=== PATIENT | male | born 1945 | race Caucasian/White ===

== ENCOUNTER → 2017-11-12 09:40 | Outpatient (CLI) | payer OTHER, SELFPAY | PROVIDERS: PCP Internal Medicine; Visit Provider Urology | DX: C61 Malignant neoplasm of prostate (principal) | CPT/HCPCS: 36415; 84153 ==

== ENCOUNTER → 2018-08-09 12:35 | Outpatient (CLI) | payer OTHER, SELFPAY | PROVIDERS: PCP Nurse Practitioner Family; Visit Provider Nurse Practitioner Family | DX: M85.88 Other specified disorders of bone density and structure, other site (principal); E07.9 Disorder of thyroid, unspecified; Z85.46 Personal history of malignant neoplasm of prostate; Z87.891 Personal history of nicotine dependence | CPT/HCPCS: 77080 ==

== ENCOUNTER → 2018-08-19 09:24 | Outpatient (CLI) | payer OTHER, SELFPAY ==
[2018-08-19 11:02] LABS: Prostate Specific Antigen 9.79 ng/mL (0.10-4.00)
== END ==
PROVIDERS: PCP Nurse Practitioner Family; Visit Provider Urology
DX: C61 Malignant neoplasm of prostate (principal); R97.20 Elevated prostate specific antigen [PSA]
CPT/HCPCS: 36415; 84153

== ENCOUNTER → 2018-09-24 11:09 | Outpatient (CLI) | payer OTHER, SELFPAY ==
--- NOTE | 2018-09-24 | DI.NM.S_ITS ---
PROCEDURE: NM BONE SCAN WHOLE BODY RADIOPHARMACEUTICAL: 16.8 mCi Tc-99m MDP IV. INDICATIONS: PROSTATE CANCER TECHNIQUE: Delayed whole-body scintigrams were obtained approximately 3-4 hours after intravenous injection of radiotracer. Anterior and posterior views were acquired from vertex to feet. COMPARISON: [facility], CT, CT ABDOMEN PELVIS W CON, 09/24/2018, 12:33. FINDINGS: No lesions are identified in skull, sternum, clavicles, scapulae, ribs, bony pelvis, and visualized shafts of the long bones. There is low level increased uptake in cervical, thoracic and lumbar spine with distribution indistinguishable from degenerative disc and facet disease; early metastasis to spine could be obscured by degenerative changes. There are foci of increased periarticular activity involving shoulders, sternoclavicular joints, elbows, left wris, hands, knees, ankles and feet, compatible with degenerative/arthritic changes. IMPRESSION: No definitive scintigraphic findings to suggest osseous metastasis. Dictated by: Carlene Hlom M.D. on 09/24/2018 at 17:03 Approved by: Carlene Holm M.D. on 09/24/2018 at 17:25
[2018-09-24 12:12] LABS: Estimated Glomerular Filt Rate > 60.0 mL/min (>60)
--- NOTE | 2018-09-24 12:17 | DI.CT.S_ITS ---
PROCEDURE: CT ABDOMEN PELVIS W CON INDICATIONS: PROSTATE CANCER TECHNIQUE: After the administration of oral and intravenous contrast, 5 mm thick sections acquired from the diaphragms to the symphysis. 5 mm thick coronal and sagittal reformats were performed. For radiation dose reduction, the following was used: automated exposure control, adjustment of mA and/or kV according to patient size. COMPARISON: [facility], , L-SPINE 2-3 VIEWS, 11/02/2008, 10:29. FINDINGS: Image quality: Excellent. ABDOMEN: Lung bases: Probable 5 mm nodule in the right middle lobe (series 3 image 1). Lung bases are otherwise clear. Heart size is normal. There is a small hiatal hernia. Solid organs: Mild diffuse hepatic fatty infiltration. Liver is normal in size and enhancement. Gallbladder is normal. Biliary system is non-dilated. Pancreas enhances normally. Spleen is normal in size and enhancement. No adrenal nodules. Kidneys are normal in size and enhancement, without hydronephrosis. Multiple simple appearing right renal cysts are present. Peritoneum and bowel: Stomach, small bowel, and colon loops are normal in caliber and wall thickness. There are scattered colonic diverticula. No free fluid or air. Nodes and vessels: No retroperitoneal or mesenteric adenopathy. Aorta and inferior vena cava are normal in caliber. Miscellaneous: No ventral hernias. PELVIS: Genitourinary: Bladder wall thickness is normal. Prostate is enlarged and demonstrates heterogeneous enhancement. Miscellaneous: No inguinal hernias or adenopathy. Bones: No suspicious bony lesions. No vertebral body compression fractures. 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 IMPRESSION: 1. Enlarged prostate demonstrates heterogeneous enhancement. 2. No evidence for metastatic disease. 3. Diverticulosis without acute diverticulitis. 4. Hepatic steatosis. 5. Probably 5 mm nodule in the right middle lobe. Recommend followup chest CT in 6-12 months. Fleischner Society criteria for SOLID lung nodule followup. Nodule size (mm)Low-risk patientHigh-risk patient?4No follow-up neededFollow-up at 12 mo; if no change, no further follow-up>2-4Hwdtih-ef CT at 12 mo; if no change, no further follow-up needed.Initial follow-up CT at 6-12 mo, then 18-24 mo if no change. >6-8Initial follow-up CT at 6-12 mo, then 18-24 mo if no change. Initial follow-up CT at 3-6 mo, then 9-12 mo and 24 mo if no change. >8Follow-up CT at 3, 9, 24 mo. Or PET and/or biopsy.Same as for low-risk pts. Dictated by: Carlene Holm M.D. on 09/24/2018 at 15:55 Approved by: Carlene Holm M.D. on 09/24/2018 at 17:33
== END ==
PROVIDERS: PCP Nurse Practitioner Family; Visit Provider Urology
DX: C61 Malignant neoplasm of prostate (principal); K57.90 Diverticulosis of intestine, part unspecified, without perforation or abscess without bleeding; K76.0 Fatty (change of) liver, not elsewhere classified
CPT/HCPCS: 36415; 74177; 78306; 82565; A9503

== ENCOUNTER → 2019-01-10 08:44 | Outpatient (CLI) | payer OTHER, SELFPAY ==
[2019-01-10 11:06] LABS: Prostate Specific Antigen 0.627 ng/mL (0.10-4.00)
== END ==
PROVIDERS: PCP Nurse Practitioner Family; Visit Provider Student in an Organized Health Care Education/Training Program
DX: C61 Malignant neoplasm of prostate (principal)
CPT/HCPCS: 36415; 84153

== ENCOUNTER → 2019-01-17 12:51 | Outpatient (CLI) | payer OTHER, SELFPAY ==
[2019-01-17 14:52] LABS: Prostate Specific Antigen 0.623 ng/mL (0.10-4.00)
== END ==
PROVIDERS: PCP Nurse Practitioner Family; Visit Provider Student in an Organized Health Care Education/Training Program
DX: C61 Malignant neoplasm of prostate (principal)
CPT/HCPCS: 36415; 84153

== ENCOUNTER → 2019-06-21 09:43 | Outpatient (CLI) | payer OTHER, SELFPAY ==
[2019-06-21 11:21] LABS: Prostate Specific Antigen Scrn < 0.064 ng/mL (0.1-4.0)
== END ==
PROVIDERS: PCP Internal Medicine; Referring Provider Radiology Therapeutic Radiology; Visit Provider Radiology Therapeutic Radiology
DX: C61 Malignant neoplasm of prostate (principal)
CPT/HCPCS: 36415; G0103

== ENCOUNTER → 2019-08-13 07:01 | Outpatient (CLI) | payer MEDICARE, SELFPAY ==
[2019-08-13 08:06] LABS: Add Manual Diff / Slide Review NO; Basophils Absolute Auto 0 /uL (0-100); Basophils Percent Auto 0.8 % (0-2); Eosinophils Absolute Auto 200 /uL (0-450); Eosinophils Percent Auto 5.1 % (2-4); Hemoglobin 14.7 g/dL (13.5-17.5); Lymphocytes Absolute Auto 1000 /uL (1100-4500); Lymphocytes Percent Auto 20.5 % (25-40); Mean Corpuscular HGB Conc 36.6 % (30-36); Mean Corpuscular Hemoglobin 33.5 PG (26-34); Mean Corpuscular Volume 91.4 fL (80-100); Monocytes Absolute Auto 500 /uL (0-900); Monocytes Percent Auto 9.3 % (3-14); Neutrophils Absolute Auto 3100 /uL (1500-7000); Neutrophils Percent Auto 64.3 % (50-75); Platelet Count 119 X10^3/uL (150-400); Red Blood Cell Count 4.37 X10^6/uL (4.5-5.9); Red Cell Distribution Width 13.1 % (11.6-14.8); White Blood Cell Count 4.9 X10^3/uL (4.5-11.0)
[2019-08-13 08:20] LABS: Alanine Aminotransferase 35 IU/L (<50); Albumin 4.2 g/dL (3.5-5.0); Albumin Globulin Ratio 1.5 (1.0-2.8); Alkaline Phosphatase 42 U/L (38-126); Aspartate Aminotransferase 34 IU/L (17-59); BUN Creatinine Ratio 16.7 (6-22); Bilirubin Total 0.7 mg/dL (0.2-1.3); Blood Urea Nitrogen 16 mg/dL (9-20); Carbon Dioxide 29 mmol/L (22-32); Chloride 103 mmol/L (98-107); Cholesterol 157 mg/dL (140-199); Estimated Glomerular Filt Rate > 60.0 mL/min (>60); Globulin 2.8 g/dL (1.7-4.1); Glucose 98 mg/dL (80-110); HDL Cholesterol 41 mg/dL (40-60); HEMOLYSIS < 15 (0-50); LDL Cholesterol Calculated 95 mg/dL (<100); Potassium 3.7 mmol/L (3.4-5.1); Sodium 140 mmol/L (137-145); Triglycerides 104 mg/dL (35-150)
[2019-08-13 08:47] LABS: TSH w/ Reflex to FT4 7.85 uIU/mL (0.47-4.68)
[2019-08-13 09:17] LABS: Free T4, Direct Thyroxine 1.01 ng/dL (0.78-2.19)
== END ==
PROVIDERS: PCP Internal Medicine; Referring Provider Internal Medicine; Visit Provider Internal Medicine
DX: Z00.00 Encounter for general adult medical examination without abnormal findings (principal); I10 Essential (primary) hypertension; E03.9 Hypothyroidism, unspecified
CPT/HCPCS: 36415; 80053; 80061; 84439; 84443; 85025

== ENCOUNTER → 2019-09-22 12:02 | Outpatient (CLI) | payer OTHER, SELFPAY ==
[2019-09-23 06:36] LABS: PSA Ultrasensitive <0.014 ng/mL (0.000-4.000)
== END ==
PROVIDERS: PCP Internal Medicine; Referring Provider Radiology Therapeutic Radiology; Visit Provider Radiology Therapeutic Radiology
DX: C61 Malignant neoplasm of prostate (principal)
CPT/HCPCS: 36415; 84153

== ENCOUNTER → 2019-11-12 13:35 | Outpatient (CLI) | payer MEDICARE, SELFPAY ==
--- NOTE | 2019-11-12 | DI.CT.S_ITS ---
PROCEDURE: CT CHEST WO CON INDICATIONS: Abnormal findings on diagnostic imaging TECHNIQUE: Noncontrast 5 mm thick sections acquired from the pulmonary apices to the posterior costophrenic angles. 1 mm lung window, 5 mm thick coronal and sagittal and 7 mm axial MIP reformats were then acquired. For radiation dose reduction, the following was used: automated exposure control, adjustment of mA and/or kV according to patient size. COMPARISON: [facility], CT, CT ABDOMEN PELVIS W CON, 09/24/2018, 12:33. FINDINGS: Image quality: Excellent. Lungs and pleura: No acute air space opacities. No pleural effusions or pneumothorax. Central and peripheral airways are patent and normal in caliber. 4 mm right upper lobe nodule on series 3, image 122 is present. 4 mm right middle lobe nodule is present on series 3, image 188, corresponding to abnormality identified on CT abdomen of 09/24/2018. It appears unchanged.. Mediastinum: Heart size is normal. No pericardial effusion. No mediastinal adenopathy by size criteria. Thoracic aorta and central pulmonary arteries are normal in size. Esophagus is normal in caliber. No hiatal hernia. Bones and chest wall: No suspicious bony lesions. No vertebral body compression fractures. No axillary or supraclavicular adenopathy by size criteria. Thyroid gland is unremarkable . Abdomen: Visualized upper abdominal solid organs and bowel loops appear normal in the absence of contrast. IMPRESSION: 1. Stable 4 mm right middle lobe nodule seen on series 23, image 19. 2. 4 mm right upper lobe nodule without prior exams available for comparison. Recommend interval follow-up as below. Fleischner Society criteria for SOLID lung nodule followup. Nodule size (mm)Low-risk patientHigh-risk patient<6 (single or multiple)No routine followup.Optional CT at 12 months. 6-8 (single or multiple)CT at 6-12 months, then optional CT at 18-24 mo.CT at 6-12 months, then CT at 18-24 months. >8 (single)CT, PET-CT, or biopsy at 3 months. Same as for low-risk pts. >8 (multiple)CT at 3-6 months, then optional CT at 18-24 mo.CT at 3-6 months, then CT at 18-24 months. Recommendations do not apply to lung cancer screening, patients with immunosuppression, or patients with known primary cancer. Dictated by: Lindsay Vasquez M.D. on 11/12/2019 at 17:05 Approved by: Lindsay Vasquez M.D. on 11/12/2019 at 17:09
== END ==
PROVIDERS: PCP Internal Medicine; Referring Provider Family Medicine; Visit Provider Family Medicine
DX: R93.89 Abnormal findings on diagnostic imaging of other specified body structures (principal); R91.8 Other nonspecific abnormal finding of lung field
CPT/HCPCS: 71250

== ENCOUNTER 2019-11-26 12:00 | Outpatient (RCR) | payer OTHER, SELFPAY ==
--- NOTE | 2019-11-05 14:43 | PT.OIE ---
Current Diagnoses Benign prostatic hyperplasia without lower urinary tract symptoms (11/04/19) Visit Care Team Role Provider Type Dario Camejo MD Primary Care Provider Physician Specialty: Internal Medicine Address: [address] [place] [address], [address] Email: [email or web address] hospitalComm[facility] Christin Nole Attending Provider Non-Staff Referring Provider Specialty: Medical Address: [address] [place] [address], [address] Phone: Email: Physical Therapy Initial Evaluation PT-OP-A Visit Information Start: 11/04/19 08:58 Freq: Status: Active Protocol: Document 11/04/19 09:00 [facility] (Rec: 11/04/19 09:23 [facility] [id number]) Out-Patient Physical Therapy Visit Information Visit Information Visit Type Initial Evaluation Visit Start Time 09:00 Visit Stop Time 09:45 Total Visit Minutes 45 Visit Number 1 Evaluation Information Evaluation Date 11/04/19 PT-OP-B Current Condition Start: 11/04/19 08:58 Freq: Status: Active Protocol: Document 11/04/19 09:00 [facility] (Rec: 11/04/19 09:23 [facility] [id number]) Current Condition History of Current Condition Onset Date December 03 2018 Current Complaints Urinary incontinence History of Current Condition Had gained 95% of his control back after prostate surgery but then started 8 weeks of radiation he finished the end of August 2019. This set him back 6 months as far as his bladder symptoms. He has also developed a chronic cough which is causing 90% of his leakage. He notes every time he coughs he leaks. The cough started approx 3-4 weeks ago. Nitesh describes very little leakage at night when he is laying down. Leaking occurs mostly with standing. He is currently wearing depends and will go through 2-3 per day. He is doing some excavating on his property at this time. This includes lifting heavy rocks and such. He feels like he could have done this work before the radiation without problems. He also likes to sail that includes bending and twisting. Nitesh reports decreased sensation that his bladder is full. He is voiding frequently to avoid his bladder becomming too full . He is emptying his bladder once every hour. He gets up 1 xm per night to void. Hx of skin cancers removed. He reports he can feel a pelvic floor in sitting buthe has difficulty feeling his pelvic floor in supine and in standing. Treatment Goals Patient/Caregiver Goals Pt's goals include decreasing leakage to be able to continue with his normal activities without leakage. Prior Functional Status Baseline Function- ADL's Independent Baseline Function- Mobility Independent Baseline Function- Other prior to surgery and radiation Gene did not have any problems with urinary leakage PT-OP-I Pelvic Floor Start: 11/04/19 08:58 Freq: Status: Active Protocol: Document 11/04/19 09:00 [facility] (Rec: 11/05/19 14:30 [facility] [id number]) Pelvic Floor Assessment Urine Pelvic Floor Surgery Yes Other Urinary Symptoms frequency of voiding, pt often does not feel the urge to void as he is voiding frequently Leakage Size Large Leakage Cause Cough,Exercise,Lifting,Sneeze Leaks Per Day constant Voiding Frequency every hour Nocturia yes Pads Used In 24 Hours 5 Urine Pad Type Depends Contraction Ability Voluntary Contraction Moderate Voluntary Relaxation Moderate Comments Pelvic Floor Comments decreased endurance of the pelvic floor muscles, difficulty sustaining a contraction greater than 5 seconds PT-OP-J Posture/Palpation/Skin Start: 11/04/19 08:58 Freq: Status: Active Protocol: Document 11/04/19 09:00 [facility] (Rec: 11/05/19 14:30 [facility] [id number]) Palpation Assessment Location iliopsoas Palpation Location Myofascial restrictions and decreased mobility of the iliopsoas Palpation Findings Soft Tissue Tightness,Muscle Guarding suprapubic fascia Palpation Location suprapubic fascia Palpation Findings Soft Tissue Tightness Palpation Details Myofascial restrictions in the suprapubic fascia adductors Palpation Location tightness and myofascial restrictions in the adductors bilaterally Palpation Findings Soft Tissue Tightness,Muscle Guarding PT-OP-M Strength Start: 11/04/19 08:58 Freq: Status: Active Protocol: Document 11/04/19 09:00 [facility] (Rec: 11/05/19 14:30 [facility] [id number]) Hip Strength Hip Manual Muscle Testing Right External Rotation 4 Good Left External Rotation 4 Good PT-OP-Q Treatments Start: 11/04/19 08:58 Freq: Status: Active Protocol: Document 11/04/19 09:00 [facility] (Rec: 11/05/19 14:30 [facility] [id number]) Therapeutic Exercises Supine Exercises pelvic floor long holds Supine Exercise Name pelvic floor long holds Reps/Minutes 10 second holds x 10 reps Sidelying Exercises clams shells Sidelying Exercise Name clam shells Side bilateral Reps/Minutes 3 x 10 reps PT-OP-T Assessment and Plan Start: 11/04/19 08:58 Freq: Status: Active Protocol: Document 11/04/19 09:00 [facility] (Rec: 11/05/19 14:30 [facility] [id number]) Physical Therapy Assessment Goals myofascial restrictions in the suprapubic fascia, adductors, iliopsoas Impairment myofascial restrictions in the suprapubic fascia, adductors, iliopsoas Group Home Goal (LTG) With a home stretching program and manual therapy techniques there is improved mobility of the myofascial tissue and improved hip mobility. LTG Duration 8 weeks Two Impairment Urinary leakage in upright positions Group Home Goal (LTG) Nitesh has overall decreased reports of urinary leakage with activities in standing and has decreased his pad use from 5 to 0-1 pad per day. LTG Duration 8 weeks One Impairment decreased endurance of the pelvic floor muscles Short Term Goal (STG) Nitesh is able to sustain a pelvic floor contraction in supine x 10 seconds STG Duration 4 weeks Quill Picking Machine Operator Goal (LTG) Nitesh is able to sustain a pelvic floor contraction in standing x 10 seconds LTG Duration 8 weeks Assessment Summary Assessment Nitesh is a 74 year old male who presents to PT with urinary incontinence following prostatectomy and radiation therapy. Nitesh reports his prostate suregery was in December of 2018. He states he gained about 95% of his bladder control back following surgery. He started radiated in June of 2019 and by the end of radiation his bladder symptoms began returning. He also developed a chronic cough about a month ago and this is putting increased pressure down on his bladder. He is currently wearing depends and notes he leaks primarily in upright positions and with activity. He stays dry at night and with sitting. He is wearning depends and needs to change his pads approx 4-5 times per day. He is also noting some tightness in his hips since radiation but denies any c/o pain. With examination today Nitesh has decreased endurance of his pelvic floor muscles. He is able to properly contract both the pelvic floor and transverse abdominal muscles however lacks full endurance. There is myofascial restrictions noted in the suprapubic fascia and adductors. Iliopsoas on bilateral sides is tight. Treatment will include endurance training of the pelvic floor as well as MFR to improve hip mobility and counteract the effects of the radiation on the tissue surrounding the pelvis. Physical Therapy Plan Frequency and Duration Frequency of Treatment 1x/Week Duration of Treatment 8 Plan of Care Start Date 11/04/19 Plan of Care End Date 12/30/19 Therapeutic Interventions Therapeutic Interventions Home Exercise Program, Neuromuscular Re-education, Patient/Caregiver Education, Self-Care/Home Management,Soft Tissue Mobilization, Therapeutic Exercises Next Visit Focus/Plan Next Note Type Treatment Note Next Visit Plan pelvic floor strengthening, hip hat and cap opener exercises, MFR for the suprapubic region and adductors
--- NOTE | 2019-11-05 14:43 | PT.OPPOC ---
Physical, Occupational & Speech Therapy At [facility] Current Diagnoses Benign prostatic hyperplasia without lower urinary tract symptoms (11/04/19) Visit Care Team Role Provider Type Dario Camejo MD Primary Care Provider Physician Specialty: Internal Medicine Address: [address] [place] [address], [address] Email: [email or web address] Christin Noel Attending Provider Non-Staff Referring Provider Specialty: Medical Address: [address] [place] [address], [address] Phone: Email: Plan Of Care PT-OP-T Assessment and Plan Start: 11/04/19 08:58 Freq: Status: Active Protocol: Document 11/04/19 09:00 [facility] (Rec: 11/05/19 14:30 [facility] [id number]) Physical Therapy Assessment Goals myofascial restrictions in the suprapubic fascia, adductors, iliopsoas Impairment myofascial restrictions in the suprapubic fascia, adductors, iliopsoas Tile Machine Operator Goal (LTG) With a home stretching program and manual therapy techniques there is improved mobility of the myofascial tissue and improved hip mobility. LTG Duration 8 weeks Two Impairment Urinary leakage in upright positions [facility] Goal (LTG) Nitesh has overall decreased reports of urinary leakage with activities in standing and has decreased his pad use from 5 to 0-1 pad per day. LTG Duration 8 weeks One Impairment decreased endurance of the pelvic floor muscles Short Term Goal (STG) Nitesh is able to sustain a pelvic floor contraction in supine x 10 seconds STG Duration 4 weeks Tile Machine Operator Goal (LTG) Nitesh is able to sustain a pelvic floor contraction in standing x 10 seconds LTG Duration 8 weeks Assessment Summary Assessment Nietsh is a 74 year old male who presents to PT with urinary incontinence following prostatectomy and radiation therapy. Nitesh reports his prostate surgery was in December of 2018. He states he gained about 95% of his bladder control back following surgery. He started radiated in June of 2019 and by the end of radiation his bladder symptoms began returning. He also developed a chronic cough about a month ago and this is putting increased pressure down on his bladder. He is currently wearing depends and notes he leaks primarily in upright positions and with activity. He stays dry at night and with sitting. He is wearing depends and needs to change his pads approx 4-5 times per day. He is also noting some tightness in his hips since radiation but denies any c/o pain. With examination today Gene has decreased endurance of his pelvic floor muscles. He is able to properly contract both the pelvic floor and transverse abdominal muscles however lacks full endurance. There is myofascial restrictions noted in the suprapubic fascia and adductors. Iliopsoas on bilateral sides is tight. Treatment will include endurance training of the pelvic floor as well as MFR to improve hip mobility and counteract the effects of the radiation on the tissue surrounding the pelvis. Physical Therapy Plan Frequency and Duration Frequency of Treatment 1x/Week Duration of Treatment 8 Plan of Care Start Date 11/04/19 Plan of Care End Date 12/30/19 Therapeutic Interventions Therapeutic Interventions Home Exercise Program, Neuromuscular Re-education, Patient/Caregiver Education, Self-Care/Home Management,Soft Tissue Mobilization, Therapeutic Exercises Next Visit Focus/Plan Next Note Type Treatment Note Next Visit Plan pelvic floor strengthening, hip toll operator exercises, MFR for the suprapubic region and adductors Plan of Care Dates Plan of Care Start Date 11/04/19 Plan of Care End Date 12/30/19 Electronically Signed by: Chely Alvarez, PT 11/05/19 1175 Please Sign and Return: I have reviewed this Plan of Care and certify that the skilled therapy services above are required to meet the patient?s needs. Physician Signature Date Printed Name and Credentials Clinical Instructor Signature Printed Name and Credentials
--- NOTE | 2019-11-12 14:53 | PT.OTN ---
Current Diagnoses Benign prostatic hyperplasia without lower urinary tract symptoms (11/12/19) Physical Therapy Treatment Note PT-OP-A Visit Information Start: 11/04/19 08:58 Freq: Status: Active Protocol: Document 11/12/19 09:42 [facility] (Rec: 11/12/19 09:42 [facility] [email or web address]) Out-Patient Physical Therapy Visit Information Visit Information Visit Type Treatment Note Visit Start Time 09:45 Visit Stop Time 10:30 Total Visit Minutes 45 Visit Number 2 Evaluation Information Evaluation Date 11/04/19 PT-OP-B Current Condition Start: 11/04/19 08:58 Freq: Status: Active Protocol: Document 11/04/19 09:00 [facility] (Rec: 11/04/19 09:23 [facility] [id number]) Current Condition History of Current Condition Onset Date December 03 2018 Current Complaints Urinary incontinence History of Current Condition Had gained 95% of his control back after prostate surgery but then started 8 weeks of radiation he finished the end of August 2019. This set him back 6 months as far as his bladder symptoms. He has also developed a chronic cough which is causing 90% of his leakage. He notes every time he coughs he leaks. The cough started approx 3-4 weeks ago. Nitesh describes very little leakage at night when he is laying down. Leaking occurs mostly with standing. He is currently wearing depends and will go through 2-3 per day. He is doing some excavating on his property at this time. This includes lifting heavy rocks and such. He feels like he could have done this work before the radiation without problems. He also likes to sail that includes bending and twisting. Nitesh reports decreased sensation that his bladder is full. He is voiding frequently to avoid his bladder becomming too full . He is emptying his bladder once every hour. He gets up 1 xm per night to void. Hx of skin cancers removed. He reports he can feel a pelvic floor in sitting buthe has difficulty feeling his pelvic floor in supine and in standing. Treatment Goals Patient/Caregiver Goals Pt's goals include decreasing leakage to be able to continue with his normal activities without leakage. Prior Functional Status Baseline Function- ADL's Independent Baseline Function- Mobility Independent Baseline Function- Other prior to surgery and radiation Nitesh did not have any problems with urinary leakage PT-OP-C Subjective Start: 11/04/19 08:58 Freq: Status: Active Protocol: Document 11/12/19 09:45 [facility] (Rec: 11/12/19 09:52 [facility] [id number]) OP-PT Subjective Patient Comments Patient Comments Pt returns to PT today, he still has the chronic cough. He notes the kegels were no problem. The clam shells he wasn't as good at that as he could have been. HE has been feeling really weak in his right leg. PT-OP-I Pelvic Floor Start: 11/04/19 08:58 Freq: Status: Active Protocol: Document 11/04/19 09:00 [facility] (Rec: 11/05/19 14:30 [facility] [id number]) Pelvic Floor Assessment Urine Pelvic Floor Surgery Yes Other Urinary Symptoms frequency of voiding, pt often does not feel the urge to void as he is voiding frequently Leakage Size Large Leakage Cause Cough,Exercise,Lifting,Sneeze Leaks Per Day constant Voiding Frequency every hour Nocturia yes Pads Used In 24 Hours 5 Urine Pad Type Depends Contraction Ability Voluntary Contraction Moderate Voluntary Relaxation Moderate Comments Pelvic Floor Comments decreased endurance of the pelvic floor muscles, difficulty sustaining a contraction greater than 5 seconds PT-OP-J Posture/Palpation/Skin Start: 11/04/19 08:58 Freq: Status: Active Protocol: Document 11/04/19 09:00 [facility] (Rec: 11/05/19 14:30 [facility] [id number]) Palpation Assessment Location iliopsoas Palpation Location Myofascial restrictions and decreased mobility of the iliopsoas Palpation Findings Soft Tissue Tightness,Muscle Guarding suprapubic fascia Palpation Location suprapubic fascia Palpation Findings Soft Tissue Tightness Palpation Details Myofascial restrictions in the suprapubic fascia adductors Palpation Location tightness and myofascial restrictions in the adductors bilaterally Palpation Findings Soft Tissue Tightness,Muscle Guarding PT-OP-M Strength Start: 11/04/19 08:58 Freq: Status: Active Protocol: Document 11/04/19 09:00 [facility] (Rec: 11/05/19 14:30 [facility] [id number]) Hip Strength Hip Manual Muscle Testing Right External Rotation 4 Good Left External Rotation 4 Good PT-OP-Q Treatments Start: 11/04/19 08:58 Freq: Status: Active Protocol: Document 11/12/19 09:45 [facility] (Rec: 11/12/19 09:52 [facility] [id number]) Therapeutic Exercises Supine Exercises prone sphinx stretch Reps/Minutes hold 1-2 minutes figure 4 stretch Reps/Minutes hold x 1 minute each. iliopsoas hip stretch Reps/Minutes 2 x 30 seconds each. single knee to chest Reps/Minutes 2 x 30 seconds each pelvic floor long holds Supine Exercise Name pelvic floor long holds Reps/Minutes 10 second holds x 10 reps Sidelying Exercises clams shells Sidelying Exercise Name clam shells Side bilateral Reps/Minutes 3 x 10 reps Neuro Re-Education Treatment Other Activities EMG BIOFEEDBACK Details EMG biofeedback for pelvic floor recruitment Comments I worked on both long holds and quick flicks PT-OP-T Assessment and Plan Start: 11/04/19 08:58 Freq: Status: Active Protocol: Document 11/12/19 14:52 [facility] (Rec: 11/12/19 14:53 [facility] [email or web address]) Physical Therapy Assessment Assessment Summary Assessment Gene did well today tolerating the stretches, he is much tighter on his right side and iliopsoas causes some cramping with SKTC on the right. Good tolerance for long holds andhis average was a 26 and max of 49 for long holds on EMG biofeedback today Physical Therapy Plan Frequency and Duration Frequency of Treatment 1x/Week Duration of Treatment 8 Plan of Care Start Date 11/04/19 Plan of Care End Date 12/30/19 Next Visit Focus/Plan Next Note Type Treatment Note Next Visit Plan pelvic floor strengthening, hip staff air tactical officer exercises, MFR for the suprapubic region and adductors, EMG biofeedback for neuroawareness of the pelvic floor
--- NOTE | 2019-11-26 14:58 | PT.OTN ---
Current Diagnoses Benign prostatic hyperplasia without lower urinary tract symptoms (11/26/19) Physical Therapy Treatment Note PT-OP-A Visit Information Start: 11/04/19 08:58 Freq: Status: Active Protocol: Document 11/26/19 14:43 [facility] (Rec: 11/26/19 14:58 [facility] [id number]) Out-Patient Physical Therapy Visit Information Visit Information Visit Type Treatment Note Visit Start Time 12:00 Visit Stop Time 12:45 Total Visit Minutes 45 Visit Number 3 Evaluation Information Evaluation Date 11/04/19 PT-OP-B Current Condition Start: 11/04/19 08:58 Freq: Status: Active Protocol: Document 11/04/19 09:00 [facility] (Rec: 11/04/19 09:23 [facility] [id number]) Current Condition History of Current Condition Onset Date December 03 2018 Current Complaints Urinary incontinence History of Current Condition Had gained 95% of his control back after prostate surgery but then started 8 weeks of radiation he finished the end of August 2019. This set him back 6 months as far as his bladder symptoms. He has also developed a chronic cough which is causing 90% of his leakage. He notes every time he coughs he leaks. The cough started approx 3-4 weeks ago. Nitesh describes very little leakage at night when he is laying down. Leaking occurs mostly with standing. He is currently wearing depends and will go through 2-3 per day. He is doing some excavating on his property at this time. This includes lifting heavy rocks and such. He feels like he could have done this work before the radiation without problems. He also likes to sail that includes bending and twisting. Nitesh reports decreased sensation that his bladder is full. He is voiding frequently to avoid his bladder becomming too full . He is emptying his bladder once every hour. He gets up 1 xm per night to void. Hx of skin cancers removed. He reports he can feel a pelvic floor in sitting buthe has difficulty feeling his pelvic floor in supine and in standing. Treatment Goals Patient/Caregiver Goals Pt's goals include decreasing leakage to be able to continue with his normal activities without leakage. Prior Functional Status Baseline Function- ADL's Independent Baseline Function- Mobility Independent Baseline Function- Other prior to surgery and radiation Nitesh did not have any problems with urinary leakage PT-OP-C Subjective Start: 11/04/19 08:58 Freq: Status: Active Protocol: Document 11/26/19 14:43 [facility] (Rec: 11/26/19 14:58 [facility] [id number]) OP-PT Subjective Patient Comments Patient Comments Gene reports he is doing better. He is down to one pad per day and doesn't have much leaking at night now. He is feeling ready to work on his exercises on his own after this visit PT-OP-I Pelvic Floor Start: 11/04/19 08:58 Freq: Status: Active Protocol: Document 11/04/19 09:00 [facility] (Rec: 11/05/19 14:30 [facility] [id number]) Pelvic Floor Assessment Urine Pelvic Floor Surgery Yes Other Urinary Symptoms frequency of voiding, pt often does not feel the urge to void as he is voiding frequently Leakage Size Large Leakage Cause Cough,Exercise,Lifting,Sneeze Leaks Per Day constant Voiding Frequency every hour Nocturia yes Pads Used In 24 Hours 5 Urine Pad Type Depends Contraction Ability Voluntary Contraction Moderate Voluntary Relaxation Moderate Comments Pelvic Floor Comments decreased endurance of the pelvic floor muscles, difficulty sustaining a contraction greater than 5 seconds PT-OP-J Posture/Palpation/Skin Start: 11/04/19 08:58 Freq: Status: Active Protocol: Document 11/04/19 09:00 [facility] (Rec: 11/05/19 14:30 [facility] [id number]) Palpation Assessment Location iliopsoas Palpation Location Myofascial restrictions and decreased mobility of the iliopsoas Palpation Findings Soft Tissue Tightness,Muscle Guarding suprapubic fascia Palpation Location suprapubic fascia Palpation Findings Soft Tissue Tightness Palpation Details Myofascial restrictions in the suprapubic fascia adductors Palpation Location tightness and myofascial restrictions in the adductors bilaterally Palpation Findings Soft Tissue Tightness,Muscle Guarding PT-OP-M Strength Start: 11/04/19 08:58 Freq: Status: Active Protocol: Document 11/04/19 09:00 [facility] (Rec: 11/05/19 14:30 [facility] [id number]) Hip Strength Hip Manual Muscle Testing Right External Rotation 4 Good Left External Rotation 4 Good PT-OP-Q Treatments Start: 11/04/19 08:58 Freq: Status: Active Protocol: Document 11/26/19 14:43 [facility] (Rec: 11/26/19 14:58 [facility] [id number]) Therapeutic Exercises Supine Exercises prone sphinx stretch Reps/Minutes hold 1-2 minutes figure 4 stretch Reps/Minutes hold x 1 minute each. iliopsoas hip stretch Reps/Minutes 2 x 30 seconds each. single knee to chest Reps/Minutes 2 x 30 seconds each pelvic floor long holds Supine Exercise Name pelvic floor long holds Reps/Minutes 10 second holds x 10 reps Sidelying Exercises clams shells Sidelying Exercise Name clam shells Side bilateral Reps/Minutes 3 x 10 reps Neuro Re-Education Treatment Other Activities EMG BIOFEEDBACK Details EMG biofeedback for pelvic floor recruitment Comments I worked on both long holds and quick flicks PT-OP-T Assessment and Plan Start: 11/04/19 08:58 Freq: Status: Active Protocol: Document 11/26/19 14:43 [facility] (Rec: 11/26/19 14:58 [facility] [email or web address]) Physical Therapy Assessment Goals myofascial restrictions in the suprapubic fascia, adductors, iliopsoas Impairment myofascial restrictions in the suprapubic fascia, adductors, iliopsoas Senior Living Goal (LTG) With a home stretching program and manual therapy techniques there is improved mobility of the myofascial tissue and improved hip mobility. GOAL MET LTG Duration 8 weeks Two Impairment Urinary leakage in upright positions Senior Living Goal (LTG) Nitesh has overall decreased reports of urinary leakage with activities in standing and has decreased his pad use from 5 to 0-1 pad per day. Excellent progress and Gene is down to 1 pad per day LTG Duration 8 weeks One Impairment decreased endurance of the pelvic floor muscles Short Term Goal (STG) Nitesh is able to sustain a pelvic floor contraction in supine x 10 seconds GOAL MET STG Duration 4 weeks Manager Competitive Intelligence Goal (LTG) Nitesh is able to sustain a pelvic floor contraction in standing x 10 seconds Pt working on standing pelvic floor contractions at home. LTG Duration 8 weeks Assessment Summary Assessment Average strength on EMG biofeedback is an average of 38 uv now and max of 58.4 uv. Nitesh has shown a good improvement with both strengthening and endurance training of his pelvic floor. He has reduced the number of pads to 1 per day and is feeling good about his exercises at this time. He will be discharged from PT at this time to a independent [facility] . Physical Therapy Plan Discharge Physical Therapy Discharge Reasons Patient Request Discharge Comments PT ready to work on his exercises independently
--- NOTE | 2019-11-26 15:01 | PT.OPDS ---
Current Diagnoses Benign prostatic hyperplasia without lower urinary tract symptoms (11/26/19) Visit Care Team Role Provider Type Dario Camejo MD Primary Care Provider Physician Specialty: Internal Medicine Address: [address] [place] [address], [address] Email: [email or web address] Christin Noel Attending Provider Non-Staff Referring Provider Specialty: Medical Address: [address] [place] [address], [id number] Phone: Email: Visit Number Visit Number 3 Discharge Summary PT-OP-B Current Condition Start: 11/04/19 08:58 Freq: Status: Active Protocol: Document 11/04/19 09:00 [facility] (Rec: 11/04/19 09:23 [facility] [id number]) Current Condition History of Current Condition Onset Date December 03 2018 Current Complaints Urinary incontinence History of Current Condition Had gained 95% of his control back after prostate surgery but then started 8 weeks of radiation he finished the end of August 2019. This set him back 6 months as far as his bladder symptoms. He has also developed a chronic cough which is causing 90% of his leakage. He notes every time he coughs he leaks. The cough started approx 3-4 weeks ago. Nitesh describes very little leakage at night when he is laying down. Leaking occurs mostly with standing. He is currently wearing depends and will go through 2-3 per day. He is doing some excavating on his property at this time. This includes lifting heavy rocks and such. He feels like he could have done this work before the radiation without problems. He also likes to sail that includes bending and twisting. Nitesh reports decreased sensation that his bladder is full. He is voiding frequently to avoid his bladder becomming too full . He is emptying his bladder once every hour. He gets up 1 xm per night to void. Hx of skin cancers removed. He reports he can feel a pelvic floor in sitting buthe has difficulty feeling his pelvic floor in supine and in standing. Treatment Goals Patient/Caregiver Goals Pt's goals include decreasing leakage to be able to continue with his normal activities without leakage. Prior Functional Status Baseline Function- ADL's Independent Baseline Function- Mobility Independent Baseline Function- Other prior to surgery and radiation Nitesh did not have any problems with urinary leakage PT-OP-C Subjective Start: 11/04/19 08:58 Freq: Status: Active Protocol: Document 11/26/19 14:43 [facility] (Rec: 11/26/19 14:58 [facility] [id number]) OP-PT Subjective Patient Comments Patient Comments Nitesh reports he is doing better. He is down to one pad per day and doesn't have much leaking at night now. He is feeling ready to work on his exercises on his own after this visit PT-OP-I Pelvic Floor Start: 11/04/19 08:58 Freq: Status: Active Protocol: Document 11/26/19 14:59 [facility] (Rec: 11/26/19 15:01 [facility] [id number]) Pelvic Floor Assessment Urine Leakage Size Small Leaks Per Day decreased c/o leakage Voiding Frequency 1.5-2 hours Nocturia 1 Urine Pad Type Maxi Pad Contraction Ability Voluntary Contraction Moderate Voluntary Relaxation Moderate Comments Pelvic Floor Comments Nitesh is able to sustain a pelvic floor contraction for 10 seconds now with much improved average on EMG biofeedback. As of today his average was 38 with 58.4 uv max PT-OP-J Posture/Palpation/Skin Start: 11/04/19 08:58 Freq: Status: Active Protocol: Document 11/04/19 09:00 [facility] (Rec: 11/05/19 14:30 [facility] [id number]) Palpation Assessment Location iliopsoas Palpation Location Myofascial restrictions and decreased mobility of the iliopsoas Palpation Findings Soft Tissue Tightness,Muscle Guarding suprapubic fascia Palpation Location suprapubic fascia Palpation Findings Soft Tissue Tightness Palpation Details Myofascial restrictions in the suprapubic fascia adductors Palpation Location tightness and myofascial restrictions in the adductors bilaterally Palpation Findings Soft Tissue Tightness,Muscle Guarding PT-OP-M Strength Start: 11/04/19 08:58 Freq: Status: Active Protocol: Document 11/04/19 09:00 [facility] (Rec: 11/05/19 14:30 [facility] [id number]) Hip Strength Hip Manual Muscle Testing Right External Rotation 4 Good Left External Rotation 4 Good PT-OP-T Assessment and Plan Start: 11/04/19 08:58 Freq: Status: Active Protocol: Document 11/26/19 14:43 [facility] (Rec: 11/26/19 14:58 [facility] [id number]) Physical Therapy Assessment Goals myofascial restrictions in the suprapubic fascia, adductors, iliopsoas Impairment myofascial restrictions in the suprapubic fascia, adductors, iliopsoas Nursery Technician Goal (LTG) With a home stretching program and manual therapy techniques there is improved mobility of the myofascial tissue and improved hip mobility. GOAL MET LTG Duration 8 weeks Two Impairment Urinary leakage in upright positions Nursing Home Goal (LTG) Nitesh has overall decreased reports of urinary leakage with activities in standing and has decreased his pad use from 5 to 0-1 pad per day. Excellent progress and Gene is down to 1 pad per day LTG Duration 8 weeks One Impairment decreased endurance of the pelvic floor muscles Short Term Goal (STG) Nitesh is able to sustain a pelvic floor contraction in supine x 10 seconds GOAL MET STG Duration 4 weeks Nursery Technician Goal (LTG) Nitesh is able to sustain a pelvic floor contraction in standing x 10 seconds Pt working on standing pelvic floor contractions at home. LTG Duration 8 weeks Assessment Summary Assessment Average strength on EMG biofeedback is an average of 38 uv now and max of 58.4 uv. Nitesh has shown a good improvement with both strengthening and endurance training of his pelvic floor. He has reduced the number of pads to 1 per day and is feeling good about his exercises at this time. He will be discharged from PT at this time to a independent [facility] . Physical Therapy Plan Discharge Physical Therapy Discharge Reasons Patient Request Discharge Comments PT ready to work on his exercises independently
== END 2019-12-22 13:12 ==
LOC: PHYS 12:00
PROVIDERS: PCP Internal Medicine; Referring Provider Internal Medicine; Visit Provider Internal Medicine
DX: N40.0 Benign prostatic hyperplasia without lower urinary tract symptoms (principal)
CPT/HCPCS: 97110; 97112; 97161

== ENCOUNTER → 2019-12-01 13:13 | Outpatient (CLI) | payer MEDICARE, SELFPAY ==
[2019-12-03 08:23] LABS: COVID19 Sendout Not Detected (Not Detect)
== END ==
PROVIDERS: PCP Internal Medicine; Visit Provider Physician Assistant
DX: Z11.59 Encounter for screening for other viral diseases (principal)
CPT/HCPCS: 87635

== ENCOUNTER → 2019-12-04 10:51 | Outpatient (CLI) | payer MEDICARE, SELFPAY ==
--- NOTE | 2019-12-11 10:11 | PM.PFT.1 ---
Pulmonary Function Test Referral & Results Date Patient Seen: 12/04/19 Requesting provider: Dario Camejo Indication: Cough Results: The spirometry demonstrates an FVC of 3.24 L which is 85% of predicted. The FEV1 was measured at 2.36 L which is 86% of predicted. The FEV1/FVC ratio was 73 which is 100% of predicted. Following the administration of bronchodilator there was Na% improvement in FEV1 and a 33% improvement in FEF 25-75%. Lung volumes show an SVC of 4.39 L which is 107% of predicted. The diffusing capacity was measured at 20.5 for which is 72% of predicted. No hemoglobin value was provided, so no correction for potential anemia could be made, if appropriate. The maximum voluntary ventilation was normal Interpretation: This study demonstrates mild obstructive lung disease based on reduction FEV1. This is more prominent on flow volume loops based on shape of curve. There is some evidence of minimal benefit following bronchodilator with a minimal response in FEV1 but more prominent response in small airway flow demonstrated by the improvement in FEF 25-75% as above Lung volumes are normal There may also be a mild reduction in diffusing capacity, unless patient is anemic as above. Clinical correlation suggested
== END ==
PROVIDERS: PCP Internal Medicine; Referring Provider Internal Medicine; Visit Provider Internal Medicine
DX: R05 Cough (principal); J98.8 Other specified respiratory disorders; Z87.891 Personal history of nicotine dependence
CPT/HCPCS: 94060; 94726; 94729

== ENCOUNTER → 2020-03-17 08:33 | Outpatient (CLI) | payer OTHER, SELFPAY ==
[2020-03-17 10:44] LABS: Prostate Specific Antigen < 0.064 ng/mL (0.10-4.00)
== END ==
PROVIDERS: PCP Internal Medicine; Referring Provider Radiology Radiation Oncology; Visit Provider Radiology Radiation Oncology
DX: C61 Malignant neoplasm of prostate (principal)
CPT/HCPCS: 36415; 84153

== ENCOUNTER → 2020-03-25 11:11 | Outpatient (CLI) | payer MEDICARE, SELFPAY ==
--- NOTE | 2020-03-25 | DI.RAD.S_ITS ---
PROCEDURE: XR HIP W PEL IF DONE LT MIN 3V INDICATIONS: HIP PAIN TECHNIQUE: AP pelvis with lateral view(s) of the both hip(s). COMPARISON: [facility], L-SPINE 2-3 VIEWS, 11/02/2008, 10:29. [place], [place], DC BONE SCAN WHOLE BODY, 09/24/2018, 15:25. FINDINGS: Bones: No fractures or dislocations. Pelvic ring appears intact. No suspicious bony lesions. Mild symmetric hip and sacroiliac joint degeneration bilaterally. Soft tissues: The visualized bowel gas pattern is normal. No suspicious soft tissue calcifications. 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 Dictated by: Carlene Holm M.D. on 03/25/2020 at 17:21 Approved by: Carlene Holm M.D. on 03/25/2020 at 17:22
== END ==
PROVIDERS: PCP Internal Medicine; Referring Provider Internal Medicine; Visit Provider Internal Medicine
DX: M16.0 Bilateral primary osteoarthritis of hip (principal); M25.559 Pain in unspecified hip
CPT/HCPCS: 73522

== ENCOUNTER → 2020-08-11 08:45 | Outpatient (CLI) | payer MEDICARE, SELFPAY ==
[2020-08-11 09:15] LABS: Blood Urea Nitrogen 19 mg/dL (9-20); Calcium 9.8 mg/dL (8.4-10.2); Carbon Dioxide 29 mmol/L (22-32); Chloride 105 mmol/L (98-107); Estimated Glomerular Filt Rate > 60.0 mL/min (>60); Glucose 69 mg/dL (80-110); HEMOLYSIS < 15 (0-50); Potassium 4.1 mmol/L (3.4-5.1); Sodium 140 mmol/L (137-145)
[2020-08-11 09:45] LABS: TSH w/ Reflex to FT4 0.16 uIU/mL (0.47-4.68)
[2020-08-11 10:14] LABS: Free T4, Direct Thyroxine 1.61 ng/dL (0.78-2.19)
== END ==
PROVIDERS: PCP Internal Medicine; Referring Provider Internal Medicine; Visit Provider Internal Medicine
DX: I10 Essential (primary) hypertension (principal)
CPT/HCPCS: 36415; 80048; 84439; 84443

== ENCOUNTER → 2020-10-21 11:16 | Outpatient (CLI) | payer MEDICARE, SELFPAY ==
--- NOTE | 2020-10-21 11:26 | DI.CT.S_ITS ---
PROCEDURE: CT CHEST WO CON INDICATIONS: Solitary pulmonary nodule TECHNIQUE: Noncontrast 2.0-2.5 mm thick sections acquired from the pulmonary apices to the posterior costophrenic angles. 7 mm thick axial MIP and 5 mm coronal and sagittal reformats were then acquired. A low radiation dose technique was utilized. COMPARISON: [facility], CT, CT ABDOMEN PELVIS W CON, 09/24/2018, 12:33. [facility], CT, CT CHEST WO CON, 11/12/2019, 13:37. FINDINGS: Image quality: Diagnostic, given the low radiation dose technique. Lungs and pleura: There are lung nodules as listed in the following: Nodule 1: 4 mm; right upper lobe; series 3, image 123; stable since 11/12/2019. Nodule 2: 5 mm; right middle lobe; series 3, image 191; stable since 09/24/2018. Nodule 3: 2 mm; right middle lobe; series 3 image 161; stable since 11/12/2019. Nodule 4: 3 mm; left upper lobe; series 3, image 144; stable since 11/12/2019. No acute pulmonary opacities. Mild subpleural septal thickening in lingula and both lower lobes. Mediastinum: Heart size is normal. Mild coronary artery calcification. No pericardial effusion. No mediastinal adenopathy by size criteria. Thoracic aorta and central pulmonary arteries are normal in size. Esophagus is normal in caliber. No hiatal hernia. Bones and chest wall: No suspicious bony lesions. No vertebral body compression fractures. No axillary or supraclavicular adenopathy by size criteria. Thyroid gland is normal . Abdomen: Visualized upper abdomen solid organs and bowel loops appear normal in the absence of contrast. IMPRESSION: 1. Stable pulmonary nodules. Please see enclosed follow-up recommendation. 2. Mild coronary artery calcification. Fleischner Society criteria for SOLID lung nodule followup. Nodule size (mm)Low-risk patientHigh-risk patient?4No follow-up neededFollow-up at 12 mo; if no change, no further follow-up>[id number] CT at 12 mo; if no change, no further follow-up needed.Initial follow-up CT at 6-12 mo, then 18-24 mo if no change. >6-8Initial follow-up CT at 6-12 mo, then 18-24 mo if no change. Initial follow-up CT at 3-6 mo, then 9-12 mo and 24 mo if no change. >8Follow-up CT at 3, 9, 24 mo. Or PET and/or biopsy.Same as for low-risk pts. Dictated by: Carlene Holm M.D. on 10/21/2020 at 12:06 Approved by: Carlene Holm M.D. on 10/21/2020 at 12:18
== END ==
PROVIDERS: PCP Internal Medicine; Referring Provider Physician Assistant; Visit Provider Physician Assistant
DX: R91.8 Other nonspecific abnormal finding of lung field (principal); I25.10 Atherosclerotic heart disease of native coronary artery without angina pectoris
CPT/HCPCS: 71250

== ENCOUNTER → 2024-05-08 13:15 | Outpatient (CLI) | payer MEDICARE, SELFPAY ==
[2024-05-08 15:37] LABS: Prostate Specific Antigen 1.04 ng/mL (0.10-4.00)
== END ==
PROVIDERS: PCP Internal Medicine; Referring Provider Urology; Visit Provider Urology
DX: C61 Malignant neoplasm of prostate (principal)
CPT/HCPCS: 36415; 84153